=== PATIENT | female | born 1990 | race Hispanic/Latino ===

== ENCOUNTER 2016-09-12 23:45 | Emergency (ER) | payer MEDICAID ==
[2016-09-13 01:15] VITALS: BP 149/90
[2016-09-13] MEDS ORDERED: TYLENOL PO ONE (05:48)
[2016-09-13] MEDS ORDERED: DELTASONE PO ONE (05:48)
--- NOTE | 2016-09-13 05:52 | Emergency Department Report ---
HPI - General Chief Complaint: Upper Respiratory Infection Time Seen by Provider: 09/13/16 05:41 - HPI HPI: 25-year-old female comes with complaints of sore throat and body aches that started about 4 AM yesterday. Patient denies any fever no chills no nausea no vomiting no sneezing no coughing no ear pain little stomach pain and complains of headache. Patient reports she takes no meds that she didn't have any Tylenol at home. She reports that she is allergic to morphine codeine and Motrin. ED Past Medical Hx - Past Medical History Previous Medical History?: Yes Hx Hypertension: Yes (PIH) Hx Heart Attack/AMI: No Hx Congestive Heart Failure: No Hx Diabetes: Yes (GDM) Hx Deep Vein Thrombosis: No Hx Liver Disease: No Hx Renal Disease: No Hx Sickle Cell Disease: No Hx Seizures: No Hx Psychiatric Treatment: Yes (ANXIETY, BIPOLAR) Hx Asthma: Yes Hx COPD: No Hx HIV: No Additional medical history: Anxiety, BiPolar - Surgical History Past Surgical History?: Yes Additional Surgical History: tonsillectomy - Social History Smoking Status: Never Smoker Substance Use Type: None - Medications Home Medications: Home Medications Medication Instructions Recorded Confirmed Last Taken Type Polymyxin B Sulf/Trimethoprim 1 drop OP Q6H #1 bottle 10/24/14 Unknown Rx [Polytrim Eye Drops 18021gbrqj/0.1%] Naproxen [Naprosyn TAB] 500 mg PO BID #20 tablet 12/10/15 Unknown Rx diphenhydrAMINE [Benadryl CAP] 25 mg PO Q6HR PRN #20 capsule 12/10/15 Unknown Rx ALBUTEROL Inhaler [ProAir HFA 2 puff IH Q4H PRN #1 inhalation 03/07/16 Unknown Rx Inhaler] predniSONE [Deltasone] 50 mg PO DAILY #5 tablet 03/07/16 Unknown Rx Amoxicillin [Amoxicillin TAB] 875 mg PO BID #20 tablet 09/13/16 Unknown Rx Prednisone [predniSONE 5 mg (6-Day 5 mg PO .TAPER #1 tab.ds.pk 09/13/16 Unknown Rx Pack, 21 Tabs)] ED Review of Systems ROS: Stated complaint: THROAT/BODY PAIN Other details as noted in HPI Physical Exam - Physical Exam Vital Signs: Vital Signs 09/13/16 01:13 Temperature 99.9 F H Pulse Rate 104 H Respiratory 18 Rate Blood Pressure 149/90 O2 Sat by Pulse 98 Oximetry Physical Exam: GENERAL: Alert and oriented x3, no apparent distress, Normal Gait, atraumatic. HEAD: Head is normocephalic and a-traumatic. EYES: Extra ocular muscles are intact. Pupils are equal, round, and reactive to light and accommodation. EARS: symetrical, atraumatic, non tender, ear canal clear and moderate cerumen, tympanic membrance non inflamed. gross auditory nml bilaterally. NOSE: Nose symetrical, Nontender,Nares appeared normal. MOUTH:Mouth is well hydrated and without lesions. Uvula midline and swollen, Tongue not elevated. Mucous membranes are moist. Posterior pharynx clear, no exudate or lesions. Patent airways. NECK: Supple. Non edematous, No carotid bruits. No lymphadenopathy or thyromegaly. LUNGS: Symetrical with respiration, No wheezing, no rales or crackles, CTAB. HEART: S1, S2 present, regular rate and rhythm without murmur, no rubs, no gallops. ABDOMEN: No organomegaly was noted,Positive bowel sounds, soft, and non- distended. . Nontender to palpation on all Quadrants, NO CVA tenderness. EXTREMITIES/MUSCULOSKELETAL: No cyanosis, clubbing, rash, lesions or edema. Full ROM bilaterally. UE/LE Pulses 2+ bilaterally. LE and UE 5+ strength bilaterally NEUROLOGIC: No focal Deficit, Cranial nerves II through XII are grossly intact. No loss of sensation, No facial droop, Negative rhomberg. PSYCHIATRIC: Mood is congruent with affect, SKIN: Warm and dry, No lesions, No ulceration or induration present ED Course Vital Signs 09/13/16 01:13 Temperature 99.9 F H Pulse Rate 104 H Respiratory 18 Rate Blood Pressure 149/90 O2 Sat by Pulse 98 Oximetry ED Medical Decision Making - Medical Decision Making Patient has been evaluated by this provider fast track. We will send out a rapid strep most likely be negative we'll diagnose her with uvulitis put her on prednisone and Tylenol. Critical care attestation.: If time is entered above; I have spent that time in minutes in the direct care of this critically ill patient, excluding procedure time. ED Disposition Clinical Impression: Uvulitis Head ache Qualifiers: Headache type: unspecified Disposition: DISCHARGED TO HOME OR SELFCARE Is pt being admited?: No Does the pt Need Aspirin: No Condition: Stable Instructions: Uvulitis (ED) Additional Instructions: Take antibiotics and steroids as prescribed follow up with her primary care provider. Prescriptions: Amoxicillin [Amoxicillin TAB] 875 mg PO BID #20 tablet Prednisone [predniSONE 5 mg (6-Day Pack, 21 Tabs)] 5 mg PO .TAPER #1 tab.ds.pk Referrals: SUSAN ODOM MD [Primary Care Provider] - 3-5 Days Forms: Accompanied Note
== END 2016-09-13 06:14 | disposition home or self-care (01) ==
LOC: ED 23:45
DX: K12.2 Cellulitis and abscess of mouth (principal); R51 Headache; I10 Essential (primary) hypertension; E11.9 Type 2 diabetes mellitus without complications; F31.9 Bipolar disorder, unspecified; J45.909 Unspecified asthma, uncomplicated; Z90.89 Acquired absence of other organs
CPT/HCPCS: 87116; 87430; 99282; J7512

== ENCOUNTER 2016-11-28 17:08 | Emergency (ER) | payer MEDICAID ==
[2016-11-28 17:28] VITALS: BP 130/82
[2016-11-28 18:05] LABS: Basophils % (Auto) 0.4 % (0.0-1.8); Eosinophils % (Auto) 1.6 % (0.0-4.3); Hematocrit 35.4 % (30.3-42.9); Hemoglobin 11.3 gm/dl (10.1-14.3); Mean Corpuscular HGB Conc 32 % (30-34); Mean Corpuscular Volume 78 fl (79-97); Platelet Count 291 K/mm3 (140-440); Red Blood Count 4.53 M/mm3 (3.65-5.03); Red Cell Distribution Width 15.9 % (13.2-15.2)
[2016-11-28 18:07] LABS: Anion Gap 20 mmol/L; Blood Urea Nitrogen 7 mg/dL (7-17); Calcium 8.7 mg/dL (8.4-10.2); Carbon Dioxide 23 mmol/L (22-30); Chloride 102.2 mmol/L (98-107); Glucose 171 mg/dL (65-100); Potassium 4.7 mmol/L (3.6-5.0); Sodium 140 mmol/L (137-145)
[2016-11-28 18:15] LABS: Mean Corpuscular Hemoglobin 25 pg (28-32)
[2016-11-28 19:00] LABS: Bilirubin,Urine NEG (Negative); Blood,Urine SM (Negative); Ketones,Urine NEG (Negative); Leukocyte Esterase,Urine TR (Negative); Mucus,Urine FEW /HPF; Nitrite,Urine NEG (Negative); Protein,Urine <15 mg/dL mg/dL (Negative); Urobilinogen,Urine < 2.0 mg/dL (<2.0)
--- NOTE | 2016-11-29 08:08 | XRay Report ---
CHEST TWO VIEWS: 11/28/16 19:14 CLINICAL: Cough.Chest pain. COMPARISON: 03/07/16 FINDINGS: Normal heart and pulmonary vasculature. The lungs are normally expanded and clear.The bones and soft tissues are unremarkable. IMPRESSION: Normal chest.
--- NOTE | 2016-12-03 11:04 | ED Elopement Review ---
ED Pt Elopement review - Results review Lab results: Laboratory Tests 11/28/16 11/28/16 11/28/16 17:33 17:33 18:30 WBC 10.0 RBC 4.53 Hgb 11.3 Hct 35.4 MCV 78 L MCH 25 L MCHC 32 RDW 15.9 H Plt Count 291 Lymph % (Auto) 28.3 [place] % (Auto) 6.3 Eos % (Auto) 1.6 Baso % (Auto) 0.4 Lymph # 2.8 [place] # 0.6 Eos # 0.2 Baso # 0.0 Seg Neutrophils % 63.4 Seg Neutrophils # 6.4 Sodium 140 Potassium 4.7 Chloride 102.2 Carbon Dioxide 23 Anion Gap 20 BUN 7 Creatinine 0.7 Estimated GFR > 60 BUN/Creatinine Ratio 10.00 Glucose 171 H Calcium 8.7 Troponin T < 0.010 Urine Color Yellow Urine Turbidity Clear Urine pH 5.0 Ur Specific [place] 1.018 Urine Protein <15 mg/dl Urine Glucose (UA) Neg Urine Ketones Neg Urine Blood Sm Urine Nitrite Neg Urine Bilirubin Neg Urine Urobilinogen < 2.0 Ur Leukocyte Esterase Tr Urine WBC (Auto) 6.0 Urine RBC (Auto) 8.0 U Epithel Cells (Auto) 2.0 Urine Mucus Few Urine HCG, Qual Negative - Call Back decision Pt Call Back Decision: No action required
== END 2016-11-28 18:00 | disposition left against medical advice (07) ==
LOC: ED 17:08
DX: R07.9 Chest pain, unspecified (principal); Z53.21 Procedure and treatment not carried out due to patient leaving prior to being seen by health care provider
CPT/HCPCS: 36415; 71020; 80048; 81001; 81025; 84484; 85025; 93005; 93010

== ENCOUNTER 2016-12-13 23:39 | Emergency (ER) | payer MEDICAID ==
[2016-12-14 00:43] LABS: Hematocrit 39.4 % (30.3-42.9); Hemoglobin 12.2 gm/dl (10.1-14.3); Mean Corpuscular HGB Conc 31 % (30-34); Mean Corpuscular Volume 80 fl (79-97); Platelet Count 271 K/mm3 (140-440); Red Blood Count 4.94 M/mm3 (3.65-5.03); Red Cell Distribution Width 15.4 % (13.2-15.2)
[2016-12-14 00:48] LABS: White Blood Count 26.8 K/mm3 (4.5-11.0)
[2016-12-14 00:49] LABS: Mean Corpuscular Hemoglobin 25 pg (28-32)
[2016-12-14 01:02] LABS: Anion Gap 25 mmol/L; BUN/Creatinine Ratio 12.85; Blood Urea Nitrogen 9 mg/dL (7-17); Calcium 9.2 mg/dL (8.4-10.2); Carbon Dioxide 20 mmol/L (22-30); Chloride 99.1 mmol/L (98-107); Glucose 140 mg/dL (65-100); Potassium 4.1 mmol/L (3.6-5.0); Sodium 140 mmol/L (137-145)
[2016-12-14 02:20] LABS: Basophils % (Manual) 0 % (0.0-1.8); Blastocytes % (Manual) 0 %; Eosinophils % (Manual) 0 % (0.0-4.3)
[2016-12-14] MEDS ORDERED: MOTRIN PO ONE (02:22)
[2016-12-14 02:23] LABS: Diff Status Complete; Hypochromasia 1+; Platelet Estimate Consistent w Auto
--- NOTE | 2016-12-14 02:24 | Emergency Department Report ---
ED Chest Pain HPI - General Chief Complaint: Chest Pain Stated Complaint: FEVR,SORE THROAT,CHEST PAIN, Time Seen by Provider: 12/14/16 02:13 Source: patient, family Mode of arrival: Ambulatory Limitations: No Limitations - History of Present Illness Initial Comments: Patient to Ed c/o of left chest pain and sore throat 10/10 and sharp. denies drooling. Reports coughing. Alll symptoms started yesterday. reports fever and chills. Painful to swallow.OTC pain med with minimal relief. Denies nausea or vomiting, Denies neck pain, headache or neck stiffness. denies urinary burning frequency or urgency. denies back or abdominal pain. Patient with h/o asthma but denies sob or wheezing. She reports she usually wheeze with asthma. Tolerating liquids well.denies h/o of heart disease. MD Complaint: chest pain, other (Sore throat/fever) Onset/Timin -: days(s) Onset: during rest Pain Location: left chest Pain Radiation: none Severity: severe Severity scale (0 -10): 10 Quality: sharp Consistency: intermittent Improves With: nothing Worsens With: nothing Context: other (Sore throat and cough) re: denies: nausea, vomting, diaphoresis, dyspnea, sense of impending doom Other Symptoms: cough, fever. denies: syncope, rash, acid taste in mouth, leg swelling, palpitations, burping Treatments Prior to Arrival: none Aspirin use within the Past 7 Days: (0) No - Related Data On Oral Contraceptives: No Previous Rx's Medication Instructions Recorded Last Taken Type Polymyxin B Sulf/Trimethoprim 1 drop OP Q6H #1 bottle 10/24/14 Unknown Rx [Polytrim Eye Drops 62157vraps/0.1%] Naproxen [Naprosyn TAB] 500 mg PO BID #20 tablet 12/10/15 Unknown Rx diphenhydrAMINE [Benadryl CAP] 25 mg PO Q6HR PRN #20 capsule 12/10/15 Unknown Rx ALBUTEROL Inhaler [ProAir HFA 2 puff IH Q4H PRN #1 inhalation 03/07/16 Unknown Rx Inhaler] predniSONE [Deltasone] 50 mg PO DAILY #5 tablet 03/07/16 Unknown Rx Amoxicillin [Amoxicillin TAB] 875 mg PO BID #20 tablet 09/13/16 Unknown Rx Prednisone [predniSONE 5 mg (6-Day 5 mg PO .TAPER #1 tab.ds.pk 09/13/16 Unknown Rx Pack, 21 Tabs)] Brompheniramine/Pseudoephed/Dm 10 ml PO Q8H PRN #210 syrup 12/14/16 Unknown Rx [Bromfed Dm Cough Syrup] Clindamycin [Clindamycin CAP] 300 mg PO Q8H #30 cap 12/14/16 Unknown Rx Ibuprofen [Motrin] 600 mg PO Q8H PRN #15 tablet 12/14/16 Unknown Rx Allergies Allergy/AdvReac Type Severity Reaction Status Date / Time codeine Allergy Swelling Verified 03/06/16 20:06 morphine Allergy Swelling Verified 03/06/16 20:06 Heart Score - HEART Score History: Slightly suspicious EKG: Non-specific Age: < 45 Risk factors: 1-2 risk factors (OBESITY) Troponin: < normal limit (Normal limits) HEART Score: 2 - Critical Actions Critical Actions: 0-3 pts:0.9-1.7%risk of adverse cardiac event.Candidate for discharge ED Review of Systems ROS: Stated complaint: FEVR,SORE THROAT,CHEST PAIN, Other details as noted in HPI Comment: All other systems reviewed and negative Constitutional: chills, fever. denies: diaphoresis, malaise, weakness Eyes: denies: eye discharge ENT: throat pain. denies: ear pain, congestion Respiratory: cough. denies: shortness of breath, SOB with exertion, SOB at rest , stridor, wheezing Cardiovascular: chest pain. denies: palpitations, edema, syncope Gastrointestinal: denies: abdominal pain, nausea, vomiting, diarrhea Genitourinary: denies: urgency, dysuria, frequency, hematuria, discharge Musculoskeletal: denies: back pain, arthralgia Skin: denies: rash ED Past Medical Hx - Past Medical History Previous Medical History?: Yes Hx Hypertension: Yes (PIH) Hx Heart Attack/AMI: No Hx Congestive Heart Failure: No Hx Diabetes: Yes (GDM) Hx Deep Vein Thrombosis: No Hx Liver Disease: No Hx Renal Disease: No Hx Sickle Cell Disease: No Hx Seizures: No Hx Psychiatric Treatment: Yes (ANXIETY, BIPOLAR) Hx Asthma: Yes Hx COPD: No Hx HIV: No Additional medical history: Anxiety, BiPolar - Surgical History Past Surgical History?: Yes Additional Surgical History: tonsillectomy - Social History Smoking Status: Never Smoker Substance Use Type: None - Medications Home Medications: Home Medications Medication Instructions Recorded Confirmed Last Taken Type Polymyxin B Sulf/Trimethoprim 1 drop OP Q6H #1 bottle 10/24/14 Unknown Rx [Polytrim Eye Drops 09216vyzdr/0.1%] Naproxen [Naprosyn TAB] 500 mg PO BID #20 tablet 12/10/15 Unknown Rx diphenhydrAMINE [Benadryl CAP] 25 mg PO Q6HR PRN #20 capsule 12/10/15 Unknown Rx ALBUTEROL Inhaler [ProAir HFA 2 puff IH Q4H PRN #1 inhalation 03/07/16 Unknown Rx Inhaler] predniSONE [Deltasone] 50 mg PO DAILY #5 tablet 03/07/16 Unknown Rx Amoxicillin [Amoxicillin TAB] 875 mg PO BID #20 tablet 09/13/16 Unknown Rx Prednisone [predniSONE 5 mg (6-Day 5 mg PO .TAPER #1 tab.ds.pk 09/13/16 Unknown Rx Pack, 21 Tabs)] Brompheniramine/Pseudoephed/Dm 10 ml PO Q8H PRN #210 syrup 12/14/16 Unknown Rx [Bromfed Dm Cough Syrup] Clindamycin [Clindamycin CAP] 300 mg PO Q8H #30 cap 12/14/16 Unknown Rx Ibuprofen [Motrin] 600 mg PO Q8H PRN #15 tablet 12/14/16 Unknown Rx ED Physical Exam - General Limitations: No Limitations ED Course Vital Signs 12/13/16 12/14/16 23:56 03:32 Temperature 100.3 F H 99.2 F Pulse Rate 108 H 95 H Respiratory 22 20 Rate Blood Pressure 147/92 Blood Pressure 138/76 [Left] O2 Sat by Pulse 96 95 Oximetry - Reevaluation(s) Reevaluation #1: 12/14/16 05:06 Patient stay. She was given 1 L of normal saline, Motrin 800 mg by mouth, Rocephin 1 g Im and Decadron 10 mg IM. Positive strep throat. Vitals Signs are normalizing. She says she feels much better. 12/14/16 05:07 DEMETRI score - Demetri Score Age > 65: (0) No Aspirin use within the Past 7 Days: (0) No 3 or more CAD Risk Factors: (0) No 2 or more Angina events in past 24 hrs: (0) No Known CAD with more than 50% Stenosis: (0) No Elevated Cardiac Markers: (0) No ST Deviation Greater than 0.5mm: (0) No DEMETRI Score: 0 ED Medical Decision Making - Lab Data Result diagrams: 12/14/16 00:20 12/14/16 00:20 Lab Results 12/14/16 12/14/16 12/14/16 Range/Units 00:20 00:20 02:43 WBC 26.8 H (4.5-11.0) K/mm3 RBC 4.94 (3.65-5.03) M/mm3 Hgb 12.2 (10.1-14.3) gm/dl Hct 39.4 (30.3-42.9) % MCV 80 (79-97) fl MCH 25 L (28-32) pg MCHC 31 (30-34) % RDW 15.4 H (13.2-15.2) % Plt Count 271 (140-440) K/mm3 Add Manual Diff Complete Total Counted 100 Seg Neuts % (Manual) 77.0 H (40.0-70.0) % Band Neutrophils % 3.0 % Lymphocytes % (Manual) 8.0 L (13.4-35.0) % Reactive Lymphs % (Man) 1.0 % Monocytes % (Manual) 11.0 H (0.0-7.3) % Eosinophils % (Manual) 0 (0.0-4.3) % Basophils % (Manual) 0 (0.0-1.8) % Metamyelocytes % 0 % Myelocytes % 0 % Promyelocytes % 0 % Blast Cells % 0 % Nucleated RBC % Not Reportable Seg Neutrophils # Man 20.6 H (1.8-7.7) K/mm3 Band Neutrophils # 0.8 K/mm3 Lymphocytes # (Manual) 2.1 (1.2-5.4) K/mm3 Abs React Lymphs (Man) 0.3 K/mm3 Monocytes # (Manual) 2.9 H (0.0-0.8) K/mm3 Eosinophils # (Manual) 0.0 (0.0-0.4) K/mm3 Basophils # (Manual) 0.0 (0.0-0.1) K/mm3 Metamyelocytes # 0.0 K/mm3 Myelocytes # 0.0 K/mm3 Promyelocytes # 0.0 K/mm3 Blast Cells # 0.0 K/mm3 WBC Morphology Not Reportable Hypersegmented Neuts Not Reportable Hyposegmented Neuts Not Reportable Hypogranular Neuts Not Reportable Smudge Cells Not Reportable Toxic Granulation Not Reportable Toxic Vacuolation Not Reportable Dohle Bodies Not Reportable Pelger-Huet Anomaly Not Reportable David Rods Not Reportable Platelet Estimate Consistent w auto Clumped Platelets Not Reportable Plt Clumps, EDTA Not Reportable Large Platelets Not Reportable Giant Platelets Not Reportable Platelet Satelliting Not Reportable Plt Morphology Comment Not Reportable RBC Morphology Not Reportable Dimorphic RBCs Not Reportable Polychromasia Not Reportable Hypochromasia 1+ Poikilocytosis Not Reportable Anisocytosis Not Reportable Microcytosis Not Reportable Macrocytosis Not Reportable Spherocytes Not Reportable Pappenheimer Bodies Not Reportable Sickle Cells Not Reportable Target Cells Not Reportable Tear Drop Cells Not Reportable Ovalocytes Not Reportable Helmet Cells Not Reportable Subramanian-[place] Bodies Not Reportable [place] Rings Not Reportable Glenna Cells Not Reportable Bite Cells Not Reportable Crenated Cell Not Reportable Elliptocytes Not Reportable Acanthocytes (Spur) Not Reportable Rouleaux Not Reportable Hemoglobin C Crystals Not Reportable Schistocytes Not Reportable Malaria parasites Not Reportable Naveen Bodies Not Reportable Hem Pathologist Commnt No Sodium 140 (137-145) mmol/L Potassium 4.1 (3.6-5.0) mmol/L Chloride 99.1 (98-107) mmol/L Carbon Dioxide 20 L (22-30) mmol/L Anion Gap 25 mmol/L BUN 9 (7-17) mg/dL Creatinine 0.7 (0.7-1.2) mg/dL Estimated GFR > 60 ml/min BUN/Creatinine Ratio 12.85 % Glucose 140 H (65-100) mg/dL Calcium 9.2 (8.4-10.2) mg/dL Troponin T < 0.010 (0.00-0.029) ng/mL Urine Color Jenny (Yellow) Urine Turbidity Clear (Clear) Urine pH 5.0 (5.0-7.0) Ur Specific [place] 1.030 (1.003-1.030) Urine Protein 100 mg/dl (Negative) mg/dL Urine Glucose (UA) Neg (Negative) mg/dL Urine Ketones 80 (Negative) mg/dL Urine Blood Sm (Negative) Urine Nitrite Neg (Negative) Urine Bilirubin Neg (Negative) Urine Urobilinogen 4.0 (<2.0) mg/dL Ur Leukocyte Esterase Neg (Negative) Urine WBC (Auto) 9.0 H (0.0-6.0) /HPF Urine RBC (Auto) 24.0 (0.0-6.0) /HPF U Epithel Cells (Auto) 8.0 (0-13.0) /HPF Urine Mucus 3+ /HPF Urine HCG, Qual Negative (Negative) Blood cultures are pending Urine culture pending Strep test is positive - EKG Data -: EKG Interpreted by Me (attendind ED physician) Rate: tachycardia (102) - EKG Data When compared to previous EKG there are: no significant change Interpretation: no acute changes - Radiology Data Radiology results: report reviewed Chest X-ray reveals no acute cardiopulmonary findings. - Medical Decision Making ED course: Patient presented with sore throat, cough and chest pain. Cardiac workup negative. Patient positive strep, leukocytosis and mild dehydration. Atypical chest pain.he was given 1 L of normal saline, Motrin 800 mg by mouth, Rocephin 1 g Im and Decadron 10 mg IM. Pt able to tolerate oral liquids in ED. Positive strep throat. Vitals Signs are normalizing. She says she feels much better. Patient's given lab results, and urinalysis results and chest surgeries also. I told her that she has strep and she will be treated with the Clindamycin and Motrin. I told her that she'll need to increase her fluid intake and follow up with her primary care physician in 2 days. Patient has one cardiac risk factors include obesity otherwise no other risk factors. Patient voiced understanding of discharge diagnosis and treatment plan. Patient discharged home in stable condition with significant other with prescription for clindamycin, motrin and bromfed DM . Critical care attestation.: If time is entered above; I have spent that time in minutes in the direct care of this critically ill patient, excluding procedure time. ED Disposition Clinical Impression: Strep pharyngitis, Atypical chest pain, Fever in adult, Cough, Mild dehydration Leukocytosis Qualifiers: Leukocytosis type: unspecified Qualified Code(s): D72.829 - Elevated white blood cell count, unspecified Disposition: DC-01 TO HOME OR SELFCARE Is pt being admited?: No Does the pt Need Aspirin: No Condition: Stable Instructions: Chest Pain (ED), Dehydration (ED), Strep Throat (ED), Fever in Adults (ED), Leukocytosis (ED), Acute Cough (ED) Additional Instructions: Follow-up with primary care doctor in 2 days Take antibiotic as prescribed Take Motrin for pain and fever Increase fluid intake. Prescriptions: Brompheniramine/Pseudoephed/Dm [Bromfed Dm Cough Syrup] 10 ml PO Q8H PRN #210 syrup PRN Reason: Cough Clindamycin [Clindamycin CAP] 300 mg PO Q8H #30 cap Ibuprofen [Motrin] 600 mg PO Q8H PRN #15 tablet PRN Reason: Pain Referrals: PRIMARY CARE, [Primary Care Provider] - 12/16/16 Forms: Accompanied Note, Work/School Release Form(ED)
[2016-12-14] MEDS ORDERED: NACL 0.9% 1000 ML 1,000 ML IV ONE (02:27)
[2016-12-14] MEDS ORDERED: XYLOCAINE 1% MPF 5 mL INFILTRATI ONE (03:21)
[2016-12-14] MEDS ORDERED: ROCEPHIN IM STA (03:21)
[2016-12-14] MEDS ORDERED: DECADRON IV STA (03:23)
[2016-12-14 03:32] VITALS: BP 138/76
[2016-12-14 03:35] LABS: Bilirubin,Urine NEG (Negative); Blood,Urine SM (Negative); Ketones,Urine 80 mg/dL (Negative); Leukocyte Esterase,Urine NEG (Negative); Mucus,Urine 3+ /HPF; Nitrite,Urine NEG (Negative)
--- NOTE | 2016-12-14 04:26 | XRay Report ---
FINAL REPORT PROCEDURE: XR CHEST ROUTINE 2V TECHNIQUE: PA and lateral chest radiographs were obtained. CPT 80443 HISTORY: cp COMPARISON: No prior studies are available for comparison. FINDINGS: Heart: Normal. Mediastinum/Vessels: Normal. Lungs/Pleural space: Normal. Bony thorax: No acute osseous abnormality. Other: IMPRESSION: There is no evidence of an acute cardiopulmonary process..
== END 2016-12-14 05:37 | disposition home or self-care (01) ==
LOC: ED 23:39
DX: J02.0 Streptococcal pharyngitis (principal); R07.89 Other chest pain; D72.829 Elevated white blood cell count, unspecified; E86.0 Dehydration; I10 Essential (primary) hypertension; F31.9 Bipolar disorder, unspecified; F41.9 Anxiety disorder, unspecified; J45.909 Unspecified asthma, uncomplicated; Z88.6 Allergy status to analgesic agent
CPT/HCPCS: 36415; 71020; 80048; 81001; 81025; 84484; 85007; 85025; 87040; 87086; 87430; 93005; 93010; 96361; 96372; 96374; 99285; J0696; J1100; J7030

== ENCOUNTER 2017-04-18 01:08 | Emergency (ER) | payer MEDICAID ==
--- NOTE | 2017-04-18 03:02 | XRay Report ---
FINAL REPORT EXAM: XR CHEST ROUTINE 2V HISTORY: cough, SOB COMPARISON: None available. FINDINGS:: Frontal and lateral views of the chest obtained. Heart upper limits normal in size. Shallow inspiration. No gross focal consolidation or effusion. Tiny calcified granuloma left midlung. Bony structures are grossly intact. No pneumothorax. IMPRESSION:: No acute findings.
--- NOTE | 2017-04-18 07:39 | Emergency Department Report ---
HPI - General Chief Complaint: Upper Respiratory Infection Time Seen by Provider: 04/18/17 07:37 ED Past Medical Hx - Past Medical History Hx Hypertension: Yes (PIH) Hx Heart Attack/AMI: No Hx Congestive Heart Failure: No Hx Diabetes: Yes (GDM) Hx Deep Vein Thrombosis: No Hx Liver Disease: No Hx Renal Disease: No Hx Sickle Cell Disease: No Hx Seizures: No Hx Psychiatric Treatment: Yes (ANXIETY, BIPOLAR) Hx Asthma: Yes Hx COPD: No Hx HIV: No Additional medical history: Anxiety, BiPolar - Surgical History Additional Surgical History: tonsillectomy - Social History Smoking Status: Never Smoker Substance Use Type: None - Medications Home Medications: Home Medications Medication Instructions Recorded Confirmed Last Taken Type Polymyxin B Sulf/Trimethoprim 1 drop OP Q6H #1 bottle 10/24/14 Unknown Rx [Polytrim Eye Drops 14613wjoxv/0.1%] Naproxen [Naprosyn TAB] 500 mg PO BID #20 tablet 12/10/15 Unknown Rx diphenhydrAMINE [Benadryl CAP] 25 mg PO Q6HR PRN #20 capsule 12/10/15 Unknown Rx ALBUTEROL Inhaler [ProAir HFA 2 puff IH Q4H PRN #1 inhalation 03/07/16 Unknown Rx Inhaler] predniSONE [Deltasone] 50 mg PO DAILY #5 tablet 03/07/16 Unknown Rx Amoxicillin [Amoxicillin TAB] 875 mg PO BID #20 tablet 09/13/16 Unknown Rx Prednisone [predniSONE 5 mg (6-Day 5 mg PO .TAPER #1 tab.ds.pk 09/13/16 Unknown Rx Pack, 21 Tabs)] Brompheniramine/Pseudoephed/Dm 10 ml PO Q8H PRN #210 syrup 12/14/16 Unknown Rx [Bromfed Dm Cough Syrup] Clindamycin [Clindamycin CAP] 300 mg PO Q8H #30 cap 12/14/16 Unknown Rx Ibuprofen [Motrin] 600 mg PO Q8H PRN #15 tablet 12/14/16 Unknown Rx ED Review of Systems ROS: Stated complaint: FEVER & SOB Other details as noted in HPI Physical Exam - Physical Exam Vital Signs: Vital Signs 04/18/17 04/18/17 01:34 02:37 Temperature 98.1 F 98.1 F Pulse Rate 66 78 Respiratory 18 18 Rate Blood Pressure 143/77 143/77 O2 Sat by Pulse 98 96 Oximetry ED Course Vital Signs 04/18/17 04/18/17 01:34 02:37 Temperature 98.1 F 98.1 F Pulse Rate 66 78 Respiratory 18 18 Rate Blood Pressure 143/77 143/77 O2 Sat by Pulse 98 96 Oximetry Critical care attestation.: If time is entered above; I have spent that time in minutes in the direct care of this critically ill patient, excluding procedure time. ED Disposition Condition: Stable Referrals: SUSAN ODOM MD [Primary Care Provider] - 3-5 Days
[2017-04-18 07:55] VITALS: BP 114/59
--- NOTE | 2017-04-18 08:03 | Emergency Department Report ---
ED Chest Pain HPI - General Chief Complaint: Upper Respiratory Infection Stated Complaint: FEVER & SOB Time Seen by Provider: 04/18/17 07:37 Source: patient, family Mode of arrival: Ambulatory Limitations: No Limitations - History of Present Illness Initial Comments: This is 26-year-old female well-nourished well-developed and here complaining and a nonproductive cough, sore throat chest pain tender to touch and chills times one week. She denies any shortness of breath. She is pain to her mid to left chest is 3 out of 10 only with coughing and taking a deep breath. She denies any recent travel long distance, denies any use of control, denies any swelling to legs. Denies any personal history of clots or in her family. Denies any nausea or vomiting. She says she did not take her temperature. She says she is taking ejev-eqz-sqtipis cough and cold and it's not helping and. Patient says she does not have any history of heart disease but she does have a history of asthma gestational diabetes and -induced hypertension. She has a history of bipolar, anxiety disorder. Last menstrual period was 2016. MD Complaint: chest pain, other (cold symptoms) -: days(s) Onset: during exertion Pain Location: substernal, left chest Pain Radiation: none Severity: moderate Severity scale (0 -10): 5 Quality: aching Consistency: intermittent Improves With: rest (and not coughing) Worsens With: exertion Context: other (unknown) Other Symptoms: cough. denies: fever, syncope, rash, acid taste in mouth, leg swelling, palpitations, burping Treatments Prior to Arrival: other (pbvj-gei-wfxhfmy cough and cold) Aspirin use within the Past 7 Days: (0) No - Related Data On Oral Contraceptives: No Previous Rx's Medication Instructions Recorded Last Taken Type Polymyxin B Sulf/Trimethoprim 1 drop OP Q6H #1 bottle 10/24/14 Unknown Rx [Polytrim Eye Drops 70164jlmnt/0.1%] Naproxen [Naprosyn TAB] 500 mg PO BID #20 tablet 12/10/15 Unknown Rx diphenhydrAMINE [Benadryl CAP] 25 mg PO Q6HR PRN #20 capsule 12/10/15 Unknown Rx ALBUTEROL Inhaler [ProAir HFA 2 puff IH Q4H PRN #1 inhalation 03/07/16 Unknown Rx Inhaler] predniSONE [Deltasone] 50 mg PO DAILY #5 tablet 03/07/16 Unknown Rx Amoxicillin [Amoxicillin TAB] 875 mg PO BID #20 tablet 09/13/16 Unknown Rx Prednisone [predniSONE 5 mg (6-Day 5 mg PO .TAPER #1 tab.ds.pk 09/13/16 Unknown Rx Pack, 21 Tabs)] Clindamycin [Clindamycin CAP] 300 mg PO Q8H #30 cap 12/14/16 Unknown Rx Ibuprofen [Motrin] 600 mg PO Q8H PRN #15 tablet 12/14/16 Unknown Rx Amoxicillin/K Clav Tab [Augmentin 1 tab PO Q12HR #20 tab 04/18/17 Unknown Rx 875 mg] Brompheniramine/Pseudoephed/Dm 10 ml PO Q8H PRN #210 syrup 04/18/17 Unknown Rx [Bromfed Dm Cough Syrup] Cetirizine HCl [ZyrTEC] 10 mg PO QAM #14 capsule 04/18/17 Unknown Rx Fluticasone [Flonase] 1 spray NS QDAY #14 bottle 04/18/17 Unknown Rx Allergies Allergy/AdvReac Type Severity Reaction Status Date / Time codeine Allergy Swelling Verified 03/06/16 20:06 morphine Allergy Swelling Verified 03/06/16 20:06 Heart Score - HEART Score History: Slightly suspicious EKG: Normal Age: < 45 Risk factors: 1-2 risk factors Troponin: < normal limit HEART Score: 1 - Critical Actions Critical Actions: 0-3 pts:0.9-1.7%risk of adverse cardiac event.Candidate for discharge ED Review of Systems ROS: Stated complaint: FEVER & SOB Other details as noted in HPI Comment: All other systems reviewed and negative Constitutional: chills Eyes: denies: eye pain, eye discharge ENT: throat pain, congestion. denies: ear pain, dental pain Respiratory: cough. denies: orthopnea, shortness of breath, SOB with exertion, SOB at rest, stridor, wheezing Cardiovascular: chest pain (with coughing and taking deep breaths). denies: palpitations, dyspnea on exertion, orthopnea, edema, syncope, paroxysmal nocturnal dyspnea Endocrine: no symptoms reported Gastrointestinal: denies: abdominal pain, nausea, vomiting, diarrhea, constipation, hematemesis Genitourinary: denies: urgency, dysuria, frequency, hematuria, discharge Musculoskeletal: denies: back pain, arthralgia, myalgia Skin: denies: rash Neurological: denies: headache, numbness, paresthesias, abnormal gait, vertigo Psychiatric: denies: anxiety ED Past Medical Hx - Past Medical History Previous Medical History?: Yes Hx Hypertension: Yes (PIH) Hx Heart Attack/AMI: No Hx Congestive Heart Failure: No Hx Diabetes: Yes (GDM) Hx Deep Vein Thrombosis: No Hx Liver Disease: No Hx Renal Disease: No Hx Sickle Cell Disease: No Hx Seizures: No Hx Psychiatric Treatment: Yes (ANXIETY, BIPOLAR) Hx Asthma: Yes Hx COPD: No Hx HIV: No Additional medical history: Anxiety, BiPolar - Surgical History Past Surgical History?: Yes Additional Surgical History: tonsillectomy - Family History Family history: hypertension - Social History Smoking Status: Never Smoker Substance Use Type: None - Medications Home Medications: Home Medications Medication Instructions Recorded Confirmed Last Taken Type Polymyxin B Sulf/Trimethoprim 1 drop OP Q6H #1 bottle 10/24/14 Unknown Rx [Polytrim Eye Drops 29028byifl/0.1%] Naproxen [Naprosyn TAB] 500 mg PO BID #20 tablet 12/10/15 Unknown Rx diphenhydrAMINE [Benadryl CAP] 25 mg PO Q6HR PRN #20 capsule 12/10/15 Unknown Rx ALBUTEROL Inhaler [ProAir HFA 2 puff IH Q4H PRN #1 inhalation 03/07/16 Unknown Rx Inhaler] predniSONE [Deltasone] 50 mg PO DAILY #5 tablet 03/07/16 Unknown Rx Amoxicillin [Amoxicillin TAB] 875 mg PO BID #20 tablet 09/13/16 Unknown Rx Prednisone [predniSONE 5 mg (6-Day 5 mg PO .TAPER #1 tab.ds.pk 09/13/16 Unknown Rx Pack, 21 Tabs)] Clindamycin [Clindamycin CAP] 300 mg PO Q8H #30 cap 12/14/16 Unknown Rx Ibuprofen [Motrin] 600 mg PO Q8H PRN #15 tablet 12/14/16 Unknown Rx Amoxicillin/K Clav Tab [Augmentin 1 tab PO Q12HR #20 tab 04/18/17 Unknown Rx 875 mg] Brompheniramine/Pseudoephed/Dm 10 ml PO Q8H PRN #210 syrup 04/18/17 Unknown Rx [Bromfed Dm Cough Syrup] Cetirizine HCl [ZyrTEC] 10 mg PO QAM #14 capsule 04/18/17 Unknown Rx Fluticasone [Flonase] 1 spray NS QDAY #14 bottle 04/18/17 Unknown Rx ED Physical Exam - General Limitations: No Limitations General appearance: alert, in no apparent distress - Head Head exam: Present: atraumatic, normocephalic, normal inspection - Eye Eye exam: Present: normal appearance, PERRL, EOMI Pupils: Present: normal accommodation - ENT ENT exam: Present: normal orophraynx, mucous membranes moist, TM's normal bilaterally (bilateral TM congested without erythema), normal external ear exam , other (nasal mucosa ingested with erythema and clear drainage.no maxillary or frontal sinus tenderness) - Neck Neck exam: Present: normal inspection, full ROM, other (no C-spine tenderness). Absent: tenderness, meningismus, lymphadenopathy - Respiratory Respiratory exam: Present: normal lung sounds bilaterally, chest wall tenderness (positive chest wall tenderness midsternal area), other (dry cough). Absent: respiratory distress, wheezes, rales, rhonchi, stridor, accessory muscle use, decreased breath sounds, prolonged expiratory - Cardiovascular Cardiovascular Exam: Present: regular rate, normal rhythm, normal heart sounds. Absent: systolic murmur, diastolic murmur - GI/Abdominal GI/Abdominal exam: Present: soft, normal bowel sounds. Absent: distended, tenderness, guarding, rebound, rigid - Extremities Exam Extremities exam: Present: normal inspection, full ROM, tenderness, normal capillary refill, other (no clubbing, cyanosis or edema to her extremities. +2 pulses in all extremities. No neurovascular compromise.). Absent: pedal edema , joint swelling, calf tenderness - Back Exam Back exam: Present: normal inspection, full ROM. Absent: tenderness, CVA tenderness (R), CVA tenderness (L), paraspinal tenderness, vertebral tenderness , rash noted - Neurological Exam Neurological exam: Present: alert, oriented X3, normal gait. Absent: motor sensory deficit - Psychiatric Psychiatric exam: Present: normal affect, normal mood - Skin Skin exam: Present: warm, dry, intact, normal color. Absent: rash ED Course Vital Signs 11/12/2604/18/17 04/18/17 01:34 02:37 07:54 Temperature 98.1 F 98.1 F Pulse Rate 66 78 74 Respiratory 18 18 18 Rate Blood Pressure 143/77 143/77 Blood Pressure 114/59 [Right] O2 Sat by Pulse 98 96 Oximetry - Reevaluation(s) Reevaluation #1: 04/18/17 09:25 Patient had an uneventful ED stay. currently not having any chest pain 04/18/17 09:25 DEMETRI score - Demetri Score Age > 65: (0) No Aspirin use within the Past 7 Days: (0) No 3 or more CAD Risk Factors: (0) No 2 or more Angina events in past 24 hrs: (0) No Known CAD with more than 50% Stenosis: (0) No Elevated Cardiac Markers: (0) No ST Deviation Greater than 0.5mm: (0) No DEMETRI Score: 0 ED Medical Decision Making - Lab Data Result diagrams: 04/18/17 08:10 04/18/17 08:10 Lab Results 04/18/17 04/18/17 04/18/17 Range/Units 08:10 08:10 08:10 WBC 6.5 (4.5-11.0) K/mm3 RBC 4.64 (3.65-5.03) M/mm3 Hgb 11.4 (10.1-14.3) gm/dl Hct 36.4 (30.3-42.9) % MCV 79 (79-97) fl MCH 25 L (28-32) pg MCHC 31 (30-34) % RDW 16.1 H (13.2-15.2) % Plt Count 224 (140-440) K/mm3 Lymph % (Auto) 48.7 H (13.4-35.0) % Iron % (Auto) 9.1 H (0.0-7.3) % Eos % (Auto) 1.8 (0.0-4.3) % Baso % (Auto) 0.6 (0.0-1.8) % Lymph # 3.2 (1.2-5.4) K/mm3 Iron # 0.6 (0.0-0.8) K/mm3 Eos # 0.1 (0.0-0.4) K/mm3 Baso # 0.0 (0.0-0.1) K/mm3 Seg Neutrophils % 39.8 L (40.0-70.0) % Seg Neutrophils # 2.6 (1.8-7.7) K/mm3 PT (12.2-14.9) Sec. INR (0.87-1.13) APTT (24.2-36.6) Sec. D-Dimer (0-234) ng/mlDDU Sodium 138 (137-145) mmol/L Potassium 3.7 (3.6-5.0) mmol/L Chloride 101.4 (98-107) mmol/L Carbon Dioxide 24 (22-30) mmol/L Anion Gap 16 mmol/L BUN 9 (7-17) mg/dL Creatinine 0.5 L (0.7-1.2) mg/dL Estimated GFR > 60 ml/min BUN/Creatinine Ratio 18 % Glucose 204 H (65-100) mg/dL Calcium 8.4 (8.4-10.2) mg/dL Troponin T < 0.010 (0.00-0.029) ng/mL HCG, Qual Negative (Negative) 04/18/17 Range/Units 08:37 WBC (4.5-11.0) K/mm3 RBC (3.65-5.03) M/mm3 Hgb (10.1-14.3) gm/dl Hct (30.3-42.9) % MCV (79-97) fl MCH (28-32) pg MCHC (30-34) % RDW (13.2-15.2) % Plt Count (140-440) K/mm3 Lymph % (Auto) (13.4-35.0) % Iron % (Auto) (0.0-7.3) % Eos % (Auto) (0.0-4.3) % Baso % (Auto) (0.0-1.8) % Lymph # (1.2-5.4) K/mm3 Iron # (0.0-0.8) K/mm3 Eos # (0.0-0.4) K/mm3 Baso # (0.0-0.1) K/mm3 Seg Neutrophils % (40.0-70.0) % Seg Neutrophils # (1.8-7.7) K/mm3 PT 13.2 (12.2-14.9) Sec. INR 0.95 (0.87-1.13) APTT 28.2 (24.2-36.6) Sec. D-Dimer 196.95 (0-234) ng/mlDDU Sodium (137-145) mmol/L Potassium (3.6-5.0) mmol/L Chloride (98-107) mmol/L Carbon Dioxide (22-30) mmol/L Anion Gap mmol/L BUN (7-17) mg/dL Creatinine (0.7-1.2) mg/dL Estimated GFR ml/min BUN/Creatinine Ratio % Glucose (65-100) mg/dL Calcium (8.4-10.2) mg/dL Troponin T (0.00-0.029) ng/mL HCG, Qual (Negative) - EKG Data -: EKG Interpreted by Me (attending physician) EKG shows normal: sinus rhythm (78 bpm) Rate: normal - EKG Data Interpretation: no acute changes - Radiology Data Radiology results: report reviewed Chest x-ray revealed no acute cardiopulmonary findings - Medical Decision Making ED course: Patient here complaining of cold symptoms with chest pain and without any shortness of breath. Upon reviewing patient previous to that, she had complaint of chest pain in the past. Patient's workup includes chest x-ray which was negative for cardiopulmonary findings, EKG was normal sinus rhythm at 78 without any acute findings, CBC and CMP stable with some mild abnormalities but nothing significant that cannot be managed on outpatient basis. Patient d- dimer was normal. Urinalysis was normal and blood is negative. Patient cardiac troponin within normal limits. Patient has a low risk for cardiac event and based on her d-dimer and perc rule she has 0 risk for PE. This was explained to patient in detail and I told her she has a upper respiratory tract infection and since she's been having these symptoms for a week I will place her on Augmentin, Flonase and Zyrtec and she will need to follow up with her primary care physician in 2-3 days which she does have a primary care physician. Her primary care physician is Dr. Estiven Odom. She discharged home with prescription for Augmentin, Zyrtec and Flonase. I also gave her referral to plant maintenance mechanic. Critical care attestation.: If time is entered above; I have spent that time in minutes in the direct care of this critically ill patient, excluding procedure time. ED Disposition Clinical Impression: Atypical chest pain, Acute upper respiratory infection, Cough in adult, Obesity , Class III, BMI 40-49.9 (morbid obesity) Disposition: - TO HOME OR SELFCARE Is pt being admited?: No Does the pt Need Aspirin: No Condition: Stable Instructions: Chest Pain (ED), Upper Respiratory Infection (ED), Obesity (ED), Acute Cough (ED) Additional Instructions: Take meds as prescribed follow uop with PCP and plant maintenance mechanic Refer to discharge instructions for information on diagnosis He is increase her fluid intake Please take antibiotic with probiotics or yogurt to prevent diarrhea Prescriptions: Amoxicillin/K Clav Tab [Augmentin 875 mg] 1 tab PO Q12HR #20 tab Brompheniramine/Pseudoephed/Dm [Bromfed Dm Cough Syrup] 10 ml PO Q8H PRN #210 syrup PRN Reason: Cough Cetirizine HCl [ZyrTEC] 10 mg PO QAM #14 capsule Fluticasone [Flonase] 1 spray NS QDAY #14 bottle Referrals: ESTIVEN ODOM MD [Primary Care Provider] - 2-3 Days ABIODUN UNGER MD [Staff Physician] - 2-3 Days Forms: Accompanied Note, Work/School Release Form(ED)
[2017-04-18 08:22] LABS: Basophils % (Auto) 0.6 % (0.0-1.8); Eosinophils % (Auto) 1.8 % (0.0-4.3); Hematocrit 36.4 % (30.3-42.9); Hemoglobin 11.4 gm/dl (10.1-14.3); Mean Corpuscular HGB Conc 31 % (30-34); Mean Corpuscular Volume 79 fl (79-97); Platelet Count 224 K/mm3 (140-440); Red Blood Count 4.64 M/mm3 (3.65-5.03); Red Cell Distribution Width 16.1 % (13.2-15.2); White Blood Count 6.5 K/mm3 (4.5-11.0)
[2017-04-18 08:26] LABS: Mean Corpuscular Hemoglobin 25 pg (28-32)
[2017-04-18 08:41] LABS: Anion Gap 16 mmol/L; BUN/Creatinine Ratio 18; Blood Urea Nitrogen 9 mg/dL (7-17); Calcium 8.4 mg/dL (8.4-10.2); Carbon Dioxide 24 mmol/L (22-30); Chloride 101.4 mmol/L (98-107); Glucose 204 mg/dL (65-100); Potassium 3.7 mmol/L (3.6-5.0); Sodium 138 mmol/L (137-145)
[2017-04-18 08:57] LABS: INR 0.95 (0.87-1.13)
[2017-04-18 08:58] LABS: Partial Thromboplastin Time 28.2 Sec. (24.2-36.6)
== END 2017-04-18 09:51 | disposition home or self-care (01) ==
LOC: ED 01:08
DX: J06.9 Acute upper respiratory infection, unspecified (principal); E66.01 Morbid (severe) obesity due to excess calories; Z68.42 Body mass index [BMI] 45.0-49.9, adult; R07.9 Chest pain, unspecified; R05 Cough; I10 Essential (primary) hypertension; E11.9 Type 2 diabetes mellitus without complications; J45.909 Unspecified asthma, uncomplicated
CPT/HCPCS: 36415; 71020; 80048; 84484; 84703; 85025; 85379; 85610; 85730; 93005; 93010

== ENCOUNTER 2017-08-13 16:12 | Emergency (ER) | payer MEDICAID ==
--- NOTE | 2017-08-13 19:36 | Emergency Department Report ---
ED Laceration HPI - HPI Chief Complaint: Wound/Laceration Stated Complaint: TETANUS SHOT Time Seen by Provider: 08/13/17 18:31 Occurred When: Today Location: Lower Extremity Severity: mild Tetanus Status: Unknown Laceration Symptoms: Yes Pain, No Foreign Body Sensation, No Numbness, No Weakness Other History: This is a 26 y.o. female that presents with pain to the mid part of right foot from stepping on a nail today. Patient reports stepping on a piece of wood today with a niraj nail in it while cleaning out back yard around 1500. Patient is unsure of last tetanus vaccine. Denies numbness, tingling, and swelling. ED Review of Systems ROS: Stated complaint: TETANUS SHOT Other details as noted in HPI Constitutional: denies: chills, fever, malaise Respiratory: denies: cough, orthopnea, shortness of breath, wheezing Cardiovascular: denies: chest pain, palpitations Gastrointestinal: denies: abdominal pain, nausea, diarrhea Musculoskeletal: denies: back pain, joint swelling, arthralgia Skin: other (puncture wound to right foot). denies: rash, lesions Neurological: denies: headache, weakness, numbness, paresthesias, abnormal gait ED Past Medical Hx - Past Medical History Hx Hypertension: Yes (PIH) Hx Heart Attack/AMI: No Hx Congestive Heart Failure: No Hx Diabetes: Yes (GDM) Hx Deep Vein Thrombosis: No Hx Liver Disease: No Hx Renal Disease: No Hx Sickle Cell Disease: No Hx Seizures: No Hx Psychiatric Treatment: Yes (ANXIETY, BIPOLAR) Hx Asthma: Yes Hx COPD: No Hx HIV: No Additional medical history: Anxiety, BiPolar - Surgical History Additional Surgical History: tonsillectomy - Social History Smoking Status: Never Smoker - Medications Home Medications: Home Medications Medication Instructions Recorded Confirmed Last Taken Type Polymyxin B Sulf/Trimethoprim 1 drop OP Q6H #1 bottle 10/24/14 Unknown Rx [Polytrim Eye Drops 10100nhvrd/0.1%] Naproxen [Naprosyn TAB] 500 mg PO BID #20 tablet 12/10/15 Unknown Rx diphenhydrAMINE [Benadryl CAP] 25 mg PO Q6HR PRN #20 capsule 12/10/15 Unknown Rx ALBUTEROL Inhaler [ProAir HFA 2 puff IH Q4H PRN #1 inhalation 03/07/16 Unknown Rx Inhaler] predniSONE [Deltasone] 50 mg PO DAILY #5 tablet 03/07/16 Unknown Rx Amoxicillin [Amoxicillin TAB] 875 mg PO BID #20 tablet 09/13/16 Unknown Rx Prednisone [predniSONE 5 mg (6-Day 5 mg PO .TAPER #1 tab.ds.pk 09/13/16 Unknown Rx Pack, 21 Tabs)] Clindamycin [Clindamycin CAP] 300 mg PO Q8H #30 cap 12/14/16 Unknown Rx Ibuprofen [Motrin] 600 mg PO Q8H PRN #15 tablet 12/14/16 Unknown Rx Amoxicillin/K Clav Tab [Augmentin 1 tab PO Q12HR #20 tab 04/18/17 Unknown Rx 875 mg] Brompheniramine/Pseudoephed/Dm 10 ml PO Q8H PRN #210 syrup 04/18/17 Unknown Rx [Bromfed Dm Cough Syrup] Cetirizine HCl [ZyrTEC] 10 mg PO QAM #14 capsule 04/18/17 Unknown Rx Fluticasone [Flonase] 1 spray NS QDAY #14 bottle 04/18/17 Unknown Rx Clindamycin [Clindamycin CAP] 300 mg PO Q8H 5 Days #15 cap 08/13/17 Unknown Rx Laceration Physical Exam - Exam General: Vital signs noted. No distress. Alert and acting appropriately. Wound Length (cm): 1 Laceration Location: Lower Extremity ED Course Vital Signs 08/13/17 16:47 Temperature 98.2 F ED Medical Decision Making - Radiology Data Radiology results: report reviewed Xray of right foot: IMPRESSION: No acute bony abnormality. No radiopaque foreign body. - Medical Decision Making This is a 26 y.o. female that presents with puncture wound to right lateral plantar region of foot today. Unsure of last tetanus. Patient is stable and examined by me. Xray of right foot obtained and IMPRESSION: No acute bony abnormality. No radiopaque foreign body.. Received tetanus immunization in ER. No acute signs of distress noted. Cleaned with betadine. No signs of fluctuant pocket or opening. Discused plant to treat with clindamycin to prevent infection outpatient. Patient agrees to ED plan of care. Discharged home with clindamycin . Follow up with PCP in 2-3 days. Critical care attestation.: If time is entered above; I have spent that time in minutes in the direct care of this critically ill patient, excluding procedure time. ED Disposition Clinical Impression: Puncture wound of foot excluding toes without complication Qualifiers: Encounter type: initial encounter Laterality: right Qualified Code(s): S91.331A - Puncture wound without foreign body, right foot, initial encounter Disposition: TO HOME OR SELFCARE Is pt being admited?: No Does the pt Need Aspirin: No Condition: Stable Instructions: Puncture Wound (ED) Additional Instructions: Rest Use ice or heat on affected area for 20 minutes and off for 2 hours. Take ibuprofen, naproxen, or tylenol as needed for pain. Follow up with Primary Care Provider in 2-3 days. Prescriptions: Clindamycin [Clindamycin CAP] 300 mg PO Q8H 5 Days #15 cap Referrals: [facility] [Outside] - 3-5 Days [facility] [Outside] - 3-5 Days [facility] [Outside] - 3-5 Days Time of Disposition: 19:58 Print Language: SPANISH
--- NOTE | 2017-08-13 19:42 | XRay Report ---
FINAL REPORT EXAM: XR FOOT 3+V RT HISTORY: rusted nail WITH RT FOOT/ PATIENT STATES THAT THE NAIL WENT THROUGH IN THE ARCH AREA COMPARISON: None available. FINDINGS: Three views of the right foot obtained. No radiopaque foreign body. Bony structures are intact. Joint spaces are preserved. No acute fracture dislocation. IMPRESSION: No acute bony abnormality. No radiopaque foreign body.
[2017-08-13] MEDS ORDERED: BOOSTRIX IM ONE (19:55)
[2017-08-13 20:15] VITALS: BP 130/90
== END 2017-08-13 20:14 | disposition home or self-care (01) ==
LOC: ED 16:12
DX: S91.331A Puncture wound without foreign body, right foot, initial encounter (principal); W22.8XXA Striking against or struck by other objects, initial encounter; Y93.89 Activity, other specified; Y92.89 Other specified places as the place of occurrence of the external cause; Y99.8 Other external cause status
CPT/HCPCS: 90471; 90715; 99283

== ENCOUNTER 2018-08-01 08:43 | Day surgery (SDC) | payer MEDICAID ==
[2018-08-01] MEDS ORDERED: LACTATED RINGERS 1,000 ML IV SCH (09:25)
[2018-08-01] MEDS ORDERED: SUBLIMAZE IV PRN (10:02)
[2018-08-01] MEDS ORDERED: DILAUDID IV PRN (10:02)
[2018-08-01] MEDS ORDERED: ZOFRAN IV PRN (10:02)
--- NOTE | 2018-08-01 10:04 | Anesthesia Day of Surgery ---
Anesthesia Day of Surgery - Day of Surgery Patient Examined: Yes Patient H&P Reviewed: Yes Patient is NPO: Yes Cardiac Clearance: No (Med Clearance)
--- NOTE | 2018-08-01 10:07 | Anesthesia Consultation ---
Anesthesia Consult and Med Hx Date of service: 08/01/18 - Airway Anesthetic Teeth Evaluation: Chipped ROM Head & Neck: Adequate Mental/Hyoid Distance: Adequate Mallampati Class: Class III Intubation Access Assessment: Possibly Difficult - Pre-Operative Health Status ASA Pre-Surgery Classification: ASA3 Proposed Anesthetic Plan: General - Pulmonary Hx Smoking: Yes (IRREGULAR SMOKER) Hx Asthma: Yes (INHALER PRN; Excerbated with URI and exercise; currently stable) SOB: No (denies) COPD: No Hx Pneumonia: No Hx Sleep Apnea: No (KATALINA PRE SCREEN HIGH RISK) - Cardiovascular System Hx Hypertension: Yes (X 5 YRS) Hx Coronary Artery Disease: No Hx Heart Attack/AMI: No Hx Angina: No (denies) Hx Cardia Arrhythmia: No Hx Valvular Heart Disease: No - Central Nervous System Hx Neuromuscular Disorder: No Hx Seizures: No (Migraines) CVA: No Hx Back Pain: No Hx Psychiatric Problems: Yes (Anxiety, depression, bipolar) - Gastrointestinal Hx Ulcer: No Hx Gastroesophageal Reflux Disease: Yes (No RX; Dietary when eats tomatoes) - Endocrine Hx Renal Disease: No Hx End Stage Renal Disease: No Hx Liver Disease: No Hx Non-Insulin Dependent Diabetes: Yes (gestational) Hx Thyroid Disease: No Hx Hypothyroidism: No Hx Hyperthyroidism: No - Hematic Hx Anemia: No Hx Sickle Cell Disease: No - Other Systems Hx Alcohol Use: No Hx Substance Use: No Hx Cancer: No Hx Obesity: Yes
[2018-08-01] MEDS ORDERED: VERSED IV NR (11:00)
[2018-08-01] MEDS ORDERED: TYLENOL PO NR (11:00)
[2018-08-01] MEDS ORDERED: NEURONTIN PO NR (11:00)
[2018-08-01] MEDS ORDERED: MARCAINE 0.5% INFILTRATI ONE ×2 (11:24→11:57)
[2018-08-01] MEDS ORDERED: DIPRIVAN 10 MG/ML IV ONE (11:27)
[2018-08-01] MEDS ORDERED: ZEMURON IV ONE (11:27)
[2018-08-01] MEDS ORDERED: SUBLIMAZE ONE ×2 (11:27→12:20)
[2018-08-01] MEDS ORDERED: XYLOCAINE MPF 2% ONE (11:27)
[2018-08-01] MEDS ORDERED: ZOFRAN ONE (11:43)
[2018-08-01] MEDS ORDERED: BENADRYL ONE (11:43)
[2018-08-01] MEDS ORDERED: DECADRON ONE (11:43)
[2018-08-01] MEDS ORDERED: QUELICIN ONE (11:43)
[2018-08-01] MEDS ORDERED: NACL 0.9% IR ONE (11:58)
[2018-08-01] MEDS ORDERED: BLOXIVERZ ONE (12:30)
[2018-08-01] MEDS ORDERED: ROBINUL ONE (12:30)
[2018-08-01] MEDS ORDERED: TORADOL ONE (12:31)
[2018-08-01] MEDS ORDERED: LACTATED RINGERS 1,000 ML ONE (12:36)
[2018-08-01] MEDS ORDERED: DILAUDID ONE (12:43)
[2018-08-01] MEDS ORDERED: TRIPLE ANTIBIOTIC TP ONE (12:52)
--- NOTE | 2018-08-01 13:19 | Operative Report ---
Operative Report Operative Report: Preoperative diagnosis: Chronic pelvic pain. Postoperative diagnosis: 1. Chronic pelvic pain. 2. Pelvic endometriosis. 3. Left ovarian cyst. Procedure: 1. Diagnostic laparoscopy. 2. Left ovarian cystotomy. Surgeon: Dr. Pereira It Service Manager: none Anesthesia: general EBL: negligible IVF: RL 1 liter Complications: none Intraoperative findings: Normal uterus, fallopian tubes and right ovary, small simple left ovarian cyst, right pelvic endometriosis. Procedure details: Risks, benefits, and alternatives of the procedure were discussed in detail with the patient which included but not limited to risk of infection, hemorrhage requiring blood transfusion, injury to the bowel or bladder and blood vessels. The patient expressed understanding, her questions were answered, and she gave informed consent. The patient was taken to the operating room with an IV fluid using Ringer's lactate. In the operating room, she was placed in a dorsal supine position and given general anesthesia. She was then placed on the stirrups in a dorsal lithotomy position. The perineum, vagina, cervix, and abdomen were washed and she was prepared and draped in usual sterile fashion. The bladder was drained with straight catheter. Examination under anestehsia revealed normal external genitalia, vagina and cervix. The uterus was 8-week size, anterverted, mobile. The adnexae were nonplapable. A bivalve speculum was placed in the vagina and the anterior lip of the cervix was grasped with a single-tooth tenaculum. A HUMI uterine manipulator was advanced into the uterine cavity to provide a means of manipulating the uterus and the procedure. The speculum and tenaculum were then removed. Attention was then turned to the patient's abdomen where a 5 mm skin incision was made in the infraumbilical fold. The Veress needle was introduced into the peritoneal cavity while tenting the abdominal wall. Intraperitoneal placement was confirmed by using a water-filled syringe and by noticing a drop in the intra-abdominal pressure with CO2 gas insufflation. The trocar and sleeves were then advanced without difficulty into the abdomen where intraperitoneal placement was confirmed using laparoscope. Pneumoperitoneum was achieved with 4 L of CO2 gas. A second 5 mm skin incision was made in the left lower quadrant and a 5 mm trocar and sleeves were then advanced into the abdominal cavity under direct visualization with the laparoscope. A quick survey of the anatomy revealed a normal uterus, fallopian tubes, and right ovary, a small 2-3 cm left ovarian cyst, a powder burn lesion consistent with endometriosis in the right CDS. The left ovarian cyst was drained off a clear fluid. The ports were then opened to release to CO2 gas from the abdomen. The instruments were then removed. The ports were closed with 3.0 vicryl sutures. Steri-Strip and Tegaderm were placed. The HUMI uterine manipulator was then removed from the uterine cavity. The counts of laps, needles, sponges, and instruments were correct 2. The patient tolerated the procedure well. She was awakened from anesthesia and taken to the recovery room in a stable condition.
[2018-08-01 13:52] VITALS: BP 114/54
== END 2018-08-01 08:44 | disposition home or self-care (01) ==
LOC: OR 08:43
PROVIDERS: ATTEND Obstetrics & Gynecology
DX: R10.2 Pelvic and perineal pain (principal); G89.29 Other chronic pain; F41.9 Anxiety disorder, unspecified; D72.829 Elevated white blood cell count, unspecified; G43.909 Migraine, unspecified, not intractable, without status migrainosus; I10 Essential (primary) hypertension; E66.9 Obesity, unspecified; K21.9 Gastro-esophageal reflux disease without esophagitis; E11.9 Type 2 diabetes mellitus without complications; F31.9 Bipolar disorder, unspecified; F17.210 Nicotine dependence, cigarettes, uncomplicated; Z80.3 Family history of malignant neoplasm of breast; Z83.3 Family history of diabetes mellitus; Z88.5 Allergy status to narcotic agent; Z79.899 Other long term (current) drug therapy; Z82.49 Family history of ischemic heart disease and other diseases of the circulatory system; Z68.41 Body mass index [BMI] 40.0-44.9, adult
CPT/HCPCS: 49320; 81025; J0330; J1100; J1170; J1200; J1885; J2250; J2405; J2704; J2710; J3010; J7120; A6250

== ENCOUNTER 2019-04-08 20:16 | Emergency (ER) | payer MEDICAID ==
--- NOTE | 2019-04-08 20:30 | Emergency Department Report ---
Blank Doc - Documentation Documentation: 28-year-old female that presents with abdominal pain with nausea. This initial assessment/diagnostic orders/clinical plan/treatment(s) is/are subject to change based on patient's health status, clinical progression and re- assessment by fellow clinical providers in the ED. Further treatment and workup at subsequent clinical providers discretion. Patient/guardians urged not to elope from the ED as their condition may be serious if not clinically assessed and managed. Initial orders include: 1- Patient sent to [facility] for further evaluation and treatment 2- labs 3- UA
[2019-04-08 20:44] LABS: Basophils # (Auto) 0.1 K/mm3 (0.0-0.1); Basophils % (Auto) 0.6 % (0.0-1.8); Eosinophils # (Auto) 0.3 K/mm3 (0.0-0.4); Eosinophils % (Auto) 2.3 % (0.0-4.3); Hematocrit 43.9 % (30.3-42.9); Hemoglobin 13.9 gm/dl (10.1-14.3); Lymphocytes % (Auto) 16.7 % (13.4-35.0); Mean Corpuscular HGB Conc 32 % (30-34); Mean Corpuscular Volume 83 fl (79-97); Monocytes # (Auto) 0.8 K/mm3 (0.0-0.8); Monocytes % (Auto) 6.3 % (0.0-7.3); Platelet Count 305 K/mm3 (140-440); Red Cell Distribution Width 14.4 % (13.2-15.2)
[2019-04-08 21:07] LABS: Alanine Aminotransferase 91 units/L (7-56); Albumin 4.3 g/dL (3.9-5); BUN/Creatinine Ratio 11; Blood Urea Nitrogen 8 mg/dL (7-17); Calcium 9.5 mg/dL (8.4-10.2); Hemolysis Index 11
[2019-04-08 21:42] LABS: Bilirubin,Urine NEG (Negative); Blood,Urine SM (Negative); Color,Urine Yellow (Yellow); Mucus,Urine FEW /HPF; Protein,Urine <15 mg/dL mg/dL (Negative); Urobilinogen,Urine < 2.0 mg/dL (<2.0)
[2019-04-08] MEDS ORDERED: ONDANSETRON 4 MG/2 ML INJ IV ONE (22:44)
[2019-04-08] MEDS ORDERED: SODIUM CHLORIDE 0.9% 1000 ML 1,000 ML IV ONE (22:45)
--- NOTE | 2019-04-08 23:02 | Emergency Department Report ---
ED Abdominal Pain HPI - General Chief Complaint: Abdominal Pain Stated Complaint: SHARP PAIN STOMACH Time Seen by Provider: 04/08/19 20:29 Source: patient Mode of arrival: Ambulatory Limitations: No Limitations - History of Present Illness Initial Comments: Mrs. Dow is a 28-year-old female that presents with abdominal pain with nausea/vomiting 3 days. Patient is type II diabetic controlled glipizide. Patient states adherence with treatment regimen. Abdominal pain started 3 days ago generalized right upper radiating to left lower quadrant with nausea vomiting. symptom are exacerbated by eating, symptoms are relieved by npo. There has been no fever or chills, no cp or back pain MD Complaint: abdominal pain Severity scale (0 -10): 5 Quality: aching Consistency: constant Improves With: nothing Worsens With: eating Associated Symptoms: nausea, vomiting - Related Data Home Medications Medication Instructions Recorded Confirmed Last Taken Albuterol Sulfate [Proventil Hfa] 6.7 gm IH PRN PRN 07/31/18 08/01/18 07/31/18 09:00 Butalb/Acetaminophen/Caffeine 1 cap PO Q6HR PRN 07/31/18 08/01/18 07/31/18 [Fioricet 50-300-40 mg CAP] Lisinopril [Zestril] 10 mg PO DAILY 07/31/18 08/01/18 08/01/18 04:00 Topiramate [Topamax] 50 mg PO PRN PRN 07/31/18 08/01/18 07/31/18 21:00 lamoTRIgine [Lamictal] 50 mg PO DAILY 07/31/18 08/01/18 07/31/18 21:00 Previous Rx's Medication Instructions Recorded Last Taken Type Ibuprofen [Motrin 800 MG tab] 800 mg PO Q8HR PRN #30 tablet 04/09/19 Unknown Rx Omeprazole 40 mg PO DAILY #30 capsule. 04/09/19 Unknown Rx Ondansetron [Zofran Odt] 4 mg PO Q8HR #12 tab.rapdis 04/09/19 Unknown Rx Allergies Allergy/AdvReac Type Severity Reaction Status Date / Time codeine Allergy Swelling Verified 02/16/18 18:00 morphine Allergy Swelling Verified 02/16/18 18:00 ED Review of Systems ROS: Stated complaint: SHARP PAIN STOMACH Other details as noted in HPI Constitutional: denies: chills, fever Eyes: denies: eye pain, eye discharge, vision change ENT: denies: ear pain, throat pain Respiratory: denies: cough, shortness of breath, wheezing Cardiovascular: denies: chest pain, palpitations Endocrine: no symptoms reported Gastrointestinal: abdominal pain, nausea, vomiting. denies: diarrhea, con stipation, melena, hematochezia Genitourinary: denies: urgency, dysuria, frequency, hematuria, discharge Musculoskeletal: denies: back pain, joint swelling, arthralgia Skin: denies: rash, lesions Neurological: denies: headache, weakness, paresthesias Psychiatric: denies: anxiety, depression Hematological/Lymphatic: denies: easy bleeding, easy bruising ED Past Medical Hx - Past Medical History Hx Hypertension: Yes (X 5 YRS) Hx Heart Attack/AMI: No Hx Congestive Heart Failure: No Hx Diabetes: Yes (WITH PREG ONLY) Hx Deep Vein Thrombosis: No Hx GERD: Yes Hx Liver Disease: No Hx Renal Disease: No Hx Sickle Cell Disease: No Hx Headaches / Migraines: Yes (MIGRAINES) Hx Seizures: No (Migraines) Hx Psychiatric Treatment: Yes (ANXIETY, BIPOLAR) Hx Asthma: Yes (INHALER PRN; Excerbated with URI and exercise; currently stable) Hx COPD: No Hx HIV: No Additional medical history: Anxiety, BiPolar - Surgical History Additional Surgical History: tonsillectomy - Social History Smoking Status: Never Smoker Substance Use Type: None - Medications Home Medications: Home Medications Medication Instructions Recorded Confirmed Last Taken Type Albuterol Sulfate [Proventil Hfa] 6.7 gm IH PRN PRN 07/31/18 08/01/18 07/31/18 09:00 History Butalb/Acetaminophen/Caffeine 1 cap PO Q6HR PRN 07/31/18 08/01/18 07/31/18 History [Fioricet 50-300-40 mg CAP] Lisinopril [Zestril] 10 mg PO DAILY 07/31/18 08/01/18 08/01/18 04:00 History Topiramate [Topamax] 50 mg PO PRN PRN 07/31/18 08/01/18 07/31/18 21:00 History lamoTRIgine [Lamictal] 50 mg PO DAILY 07/31/18 08/01/18 07/31/18 21:00 History Ibuprofen [Motrin 800 MG tab] 800 mg PO Q8HR PRN #30 tablet 04/09/19 Unknown Rx Omeprazole 40 mg PO DAILY #30 capsule. 04/09/19 Unknown Rx Ondansetron [Zofran Odt] 4 mg PO Q8HR #12 tab.rapdis 04/09/19 Unknown Rx ED Physical Exam - General Limitations: No Limitations General appearance: alert, in no apparent distress - Head Head exam: Present: atraumatic, normocephalic - Eye Eye exam: Present: normal appearance, PERRL, EOMI Pupils: Present: normal accommodation - ENT ENT exam: Present: mucous membranes moist - Neck Neck exam: Present: normal inspection - Respiratory Respiratory exam: Present: normal lung sounds bilaterally. Absent: respiratory distress, wheezes, stridor, chest wall tenderness - Cardiovascular Cardiovascular Exam: Present: regular rate, normal rhythm, normal heart sounds. Absent: systolic murmur, diastolic murmur, rubs, gallop - GI/Abdominal GI/Abdominal exam: Present: soft, distended, tenderness (LLQ ), normal bowel sounds. Absent: guarding, rebound, rigid, bruit, hernia - Rectal Rectal exam: Present: deferred - Extremities Exam Extremities exam: Present: normal inspection, full ROM, normal capillary refill. Absent: tenderness - Back Exam Back exam: Present: normal inspection, full ROM. Absent: tenderness, CVA tenderness (R), CVA tenderness (L), muscle spasm, paraspinal tenderness, rash noted - Neurological Exam Neurological exam: Present: alert, altered, oriented X3, CN II-XII intact, normal gait - Psychiatric Psychiatric exam: Present: normal affect, normal mood - Skin Skin exam: Present: warm, dry, intact, normal color. Absent: rash ED Course Vital Signs 04/08/19 20:21 Temperature 98.1 F Pulse Rate 99 H Respiratory 20 Rate Blood Pressure 145/91 O2 Sat by Pulse 97 Oximetry ED Medical Decision Making - Lab Data Result diagrams: 04/08/19 20:34 04/08/19 20:34 - Radiology Data Radiology results: report reviewed, image reviewed Findings [facility] [address] [place] [address] Cat Scan Report Signed Patient: STERLING DOW MR#: [id number] : 1990 Acct:[id number] Age/Sex: 28 / F ADM Date: 04/08/19 Loc: ED Attending Dr: Ordering Physician: CRISTIAN FERNANDES NP Date of Service: 04/08/19 Procedure(s): CT abdomen pelvis w con Accession Number(s): [id number] cc: CRISTIAN FERNANDES NP CT ABDOMEN AND PELVIS WITH CONTRAST INDICATION: Right lower quadrant pain, nausea, diarrhea CONTRAST: 100 cc Omnipaque 300 IV COMPARISON: 06/14/2014, report unavailable All CT scans at this location are performed using CT dose reduction for ALARA by means of automated exposure control. NOTE: Resolution is decreased and artifact is introduced by the patient's size. FINDINGS: Lung bases are clear. No pneumoperitoneum is seen. Prominent fatty infiltration of the liver is seen without obvious focal lesion. Liver is enlarged and has a length of 22.9 cm. Spleen is not enlarged. No urinary obstructive changes are seen. No masses are noted. Pancreas appears within normal limits. Gallbladder has been removed. No biliary dilatation is seen. No lymphadenopathy is noted. Only a trace of free fluid is seen. Appendix appears within normal limits. No evidence of bowel obstruction is seen. No focal inflammatory changes are noted. No significant abdominal wall herniation is noted. Small bilateral probably physiologic ovarian cysts are noted. IMPRESSION: No acute abnormalities are seen Signer Name: Justo Delgado MD Signed: 04/09/2019 12:15 AM Workstation Name: [id number] Transcribed By: GJ Dictated By: Justo Delgado MD Electronically Authenticated By: Justo Delgado MD Signed Date/Time: 04/09/19 0015 DD/ 0000 TD/TT: - Medical Decision Making ct abd pelvis: Fatty liver disease no obstruction no mass or bleed, bilat ovarian cyst. Pain is currently reduced to 1/10 plan: dc to home, follow up with pcp Dr. Petersen, Follow up with GI , continue omeprazole po, zofran, ibuprofen, return to ed if symptoms worsen or unable to tolerate po intake, pt verbalized agreement and understanding of discharg plan. Pt is currently a/o x 3 ambulatory with steady gait and nad. pt dc'd to home in stable condition at this time. Critical care attestation.: If time is entered above; I have spent that time in minutes in the direct care of this critically ill patient, excluding procedure time. ED Disposition Clinical Impression: Fatty liver Ovarian cyst Qualifiers: Laterality: bilateral Qualified Code(s): N83.201 - Unspecified ovarian cyst, right side; N83.202 - Unspecified ovarian cyst, left side Disposition: TO HOME OR SELFCARE Is pt being admited?: No Does the pt Need Aspirin: No Condition: Stable Instructions: Non-Alcoholic Fatty Liver Disease (ED), Ovarian Cyst (ED), Diet for Ulcers and Gastritis (ED) Prescriptions: Ibuprofen [Motrin 800 MG tab] 800 mg PO Q8HR PRN #30 tablet PRN Reason: pain Omeprazole 40 mg PO DAILY #30 capsule. Ondansetron [Zofran Odt] 4 mg PO Q8HR #12 tab.rapdis Referrals: PRIMARY CARE, [Primary Care Provider] - 3-5 Days [facility] [Outside] - 3-5 Days Forms: Work/School Release Form(ED) Time of Disposition: 01:12
--- NOTE | 2019-04-09 00:19 | Cat Scan Report ---
CT ABDOMEN AND PELVIS WITH CONTRAST INDICATION: Right lower quadrant pain, nausea, diarrhea CONTRAST: 100 cc Omnipaque 300 IV COMPARISON: 06/14/2014, report unavailable All CT scans at this location are performed using CT dose reduction for ALARA by means of automated e xposure control. NOTE: Resolution is decreased and artifact is introduced by the patient's size. FINDINGS: Lung bases are clear. No pneumoperitoneum is seen. Prominent fatty infiltration of the live r is seen without obvious focal lesion. Liver is enlarged and has a length of 22.9 cm. Spleen is not enlarged. No urinary obstructive changes are seen. No masses are noted. Pancreas appears within ngozi l limits. Gallbladder has been removed. No biliary dilatation is seen. No lymphadenopathy is noted. O nly a trace of free fluid is seen. Appendix appears within normal limits. No evidence of bowel obstru ction is seen. No focal inflammatory changes are noted. No significant abdominal wall herniation is n oted. Small bilateral probably physiologic ovarian cysts are noted. IMPRESSION: No acute abnormalities are seen Signer Name: Justo Delgado MD Signed: 04/09/2019 12:15 AM Workstation Name: [id number]
[2019-04-09 01:48] VITALS: BP 131/74
== END 2019-04-09 01:20 | disposition home or self-care (01) ==
LOC: ED 20:16
DX: K76.0 Fatty (change of) liver, not elsewhere classified (principal); N83.201 Unspecified ovarian cyst, right side; N83.202 Unspecified ovarian cyst, left side; E11.9 Type 2 diabetes mellitus without complications; I10 Essential (primary) hypertension; K21.9 Gastro-esophageal reflux disease without esophagitis; G43.909 Migraine, unspecified, not intractable, without status migrainosus; J45.909 Unspecified asthma, uncomplicated; R11.2 Nausea with vomiting, unspecified; F41.9 Anxiety disorder, unspecified; F31.9 Bipolar disorder, unspecified; Z88.5 Allergy status to narcotic agent; Z79.899 Other long term (current) drug therapy; Z90.89 Acquired absence of other organs
CPT/HCPCS: 36415; 74177; 80053; 81001; 83690; 84703; 85025; 96361; 96374; 99284; J2405; J7030; Q9967